=== PATIENT | female | born 1965 | race Caucasian/White ===

== ENCOUNTER 2017-09-01 17:23 | Emergency (ER) | payer MEDICAID ==
[2017-09-01 18:08] VITALS: BP 131/89; PULSE 64; RESP 16; TEMP 98; O2SAT 97
[2017-09-01 19:46] LABS: HCG,QUALITATIVE URINE NEGATIVE (NEGATIVE)
[2017-09-01 19:53] LABS: SQUAMOUS EPITHIAL 1 /hpf (0-5); URINE BACTERIA RARE (<OCC); URINE BILIRUBIN NEGATIVE (NEGATIVE); URINE BLOOD NEGATIVE (NEGATIVE); URINE CLARITY Clear (Clear); URINE COLOR Straw (YELLOW); URINE GLUCOSE (UA) NORMAL (Normal); URINE LEUKOCYTE ESTERASE NEG Leu/uL (Negative); URINE NITRATE NEGATIVE (NEGATIVE); URINE PROTEIN NEGATIVE (NEGATIVE); URINE UROBILINOGEN NORMAL mg/dL (0.2-1.0)
--- NOTE | 2017-09-01 20:21 | C.PDOC ---
History Of Present Illness 52 yr old female presents to the ER with complaints of dysuria for the past 3 days. Patient states it feels similar to prior UTI. Patient reports history of UTIs. Denies fever, chills, nausea, vomiting, abdominal pain, hematuria, vaginal discharge or bleeding. Irregular menstrual periods for past 2-3 months, achy lower back discomfort, associted w... Hot flashes and sweats, more at night, occasional vulvar swelling/heat sensation Denies vag d/c nor high-risk sexual exposures. Time Seen by Provider: 09/01/17 19:14 Chief Complaint (Nursing): Female Genitourinary History Per: Patient History/Exam Limitations: no limitations Onset/Duration Of Symptoms: Days (3) Past Medical History Reviewed: Historical Data, Nursing Documentation, Vital Signs Vital Signs: Last Vital Signs Temp 98 F 09/01/17 18:04 Pulse 64 09/01/17 18:04 Resp 16 09/01/17 18:04 BP 131/89 09/01/17 18:04 Pulse Ox 97 09/01/17 20:44 - Medical History PMH: Asthma, HTN Family History: States: No Known Family Hx - Social History Hx Tobacco Use: No Hx Alcohol Use: No Hx Substance Use: No - Immunization History Hx Tetanus Toxoid Vaccination: No Hx Influenza Vaccination: No Review Of Systems Except As Marked, All Systems Reviewed And Found Negative. Constitutional: Negative for: Fever, Chills Gastrointestinal: Negative for: Nausea, Vomiting, Abdominal Pain Genitourinary: Positive for: Dysuria. Negative for: Hematuria, Vaginal Discharge, Vaginal Bleeding Physical Exam - Physical Exam Appears: Non-toxic, No Acute Distress Skin: Warm, Dry, No Rash Oral Mucosa: Moist Respiratory: Normal Breath Sounds Gastrointestinal/Abdominal: Normal Exam, Soft, No Tenderness, No Guarding, No Rebound Extremity: Normal ROM, No Swelling Neurological/Psych: Oriented x3, Normal Speech ED Course And Treatment O2 Sat by Pulse Oximetry: 97 (RA) Pulse Ox Interpretation: Normal Medical Decision Making Medical Decision Making: PLAN: * HCG * Urinalysis menopausal changes no UTI/no preg Educated pt declined to wait for d/c papers, "I know what that is." Disposition Doctor Will See Patient In The: Office Counseled Patient/Family Regarding: Studies Performed, Diagnosis - Disposition Referrals: [facility] [Outside] [facility] [Outside] Disposition: HOME/ ROUTINE Disposition Time: 20:42 Condition: GOOD Additional Instructions: sigue Ibuprofeno 400-600 mg cada 6 horas terence necessario [facility]igue [facility], terence necessario para seguir enrrique cuidados gynocologicos Instructions: Menopause, Hot Flashes Forms: [employer] (Icelandic) Print Language: PALAUAN - Clinical Impression Clinical Impression: Menopausal hot flushes - Scribe Statement The provider has reviewed the documentation as recorded by the Vickey Arguello Provider Attestation: All medical record entries made by the Raheemibrohit were at my direction and personally dictated by me. I have reviewed the chart and agree that the record accurately reflects my personal performance of the history, physical exam, medical decision making, and the department course for this patient. I have also personally directed, reviewed, and agree with the discharge instructions and disposition.
== END 2017-09-01 20:40 | disposition home or self-care (01) ==
LOC: C.ER 17:23
DX: N95.1 Menopausal and female climacteric states (principal)